=== PATIENT | female | born 1975 | race American Indian/Alaskan Native ===

== ENCOUNTER 2018-10-21 10:07 | Emergency (ER) | payer OTHER ==
[2018-10-21 10:15] VITALS: BP 124/70
[2018-10-21] MEDS ORDERED: NACL 0.9% 1000 ML 1,000 ML IV ONE (10:15)
[2018-10-21] MEDS ORDERED: TYLENOL PO ONE (10:15)
[2018-10-21] MEDS ORDERED: TYLENOL ONE (10:19)
[2018-10-21 10:31] LABS: Basophils % (Auto) 0.6 % (0.0-1.8); Eosinophils # (Auto) 0.1 K/mm3 (0.0-0.4); Eosinophils % (Auto) 0.8 % (0.0-4.3); Hematocrit 40.7 % (30.3-42.9); Hemoglobin 13.7 gm/dl (10.1-14.3); Lymphocytes # (Auto) 2.2 K/mm3 (1.2-5.4); Lymphocytes % (Auto) 28.2 % (13.4-35.0); Mean Corpuscular HGB Conc 34 % (30-34); Mean Corpuscular Volume 93 fl (79-97); Monocytes # (Auto) 0.4 K/mm3 (0.0-0.8); Monocytes % (Auto) 5.3 % (0.0-7.3); Platelet Count 278 K/mm3 (140-440); Red Cell Distribution Width 13.6 % (13.2-15.2)
[2018-10-21 10:54] LABS: Alanine Aminotransferase 14 units/L (7-56); Albumin 3.8 g/dL (3.9-5); BUN/Creatinine Ratio 14; Blood Urea Nitrogen 10 mg/dL (7-17); Calcium 8.6 mg/dL (8.4-10.2); Hemolysis Index 7
[2018-10-21 11:25] LABS: Bilirubin,Urine NEG (Negative); Blood,Urine NEG (Negative); Color,Urine Yellow (Yellow); Mucus,Urine FEW /HPF; Protein,Urine <15 mg/dL mg/dL (Negative); Urobilinogen,Urine < 2.0 mg/dL (<2.0); WBC,Urine < 1.0 /HPF (0.0-6.0)
--- NOTE | 2018-10-21 11:33 | Emergency Department Report ---
ED Abdominal Pain HPI - General Chief Complaint: Nausea/Vomiting/Diarrhea Stated Complaint: NAUSEA/WEAKNESS/STOMACH PAIN Time Seen by Provider: 10/21/18 11:24 Source: patient Mode of arrival: Ambulatory Limitations: No Limitations - History of Present Illness Initial Comments: Mrs. Perera is a healthy 43 yo female who presents with abdominal bloating n ausea vomiting for 3 days. Has had several months of constipation. Denies pain currently. Concerned for endometriosis, GERD and H. Pyloria. Does not have a PCP. -: Gradual, days(s) (3) Location: diffuse Severity: mild Severity scale (0 -10): 2 Quality: other (bloating) Improves With: nothing Worsens With: nothing Associated Symptoms: nausea, vomiting - Related Data Previous Rx's Medication Instructions Recorded Last Taken Type Ciprofloxacin HCl [Ciprofloxacin 500 mg PO Q12H 7 Days #14 tab 10/21/18 Unknown Rx TAB] Famotidine 20 mg PO BID 30 Days #60 tablet 10/21/18 Unknown Rx metroNIDAZOLE [Flagyl] 500 mg PO Q12HR 7 Days #14 tab 10/21/18 Unknown Rx Allergies Allergy/AdvReac Type Severity Reaction Status Date / Time No Known Allergies Allergy Unverified 10/21/18 10:09 ED Review of Systems ROS: Stated complaint: NAUSEA/WEAKNESS/STOMACH PAIN Other details as noted in HPI Comment: All other systems reviewed and negative Respiratory: denies: cough Cardiovascular: denies: chest pain Gastrointestinal: abdominal pain, nausea, vomiting, constipation ED Past Medical Hx - Past Medical History Previous Medical History?: No - Surgical History Past Surgical History?: Yes Additional Surgical History: C/S, 3 cervical cerclages - Social History Smoking Status: Current Every Day Smoker Substance Use Type: None - Medications Home Medications: Home Medications Medication Instructions Recorded Confirmed Last Taken Type Ciprofloxacin HCl [Ciprofloxacin 500 mg PO Q12H 7 Days #14 tab 10/21/18 Unknown Rx TAB] Famotidine 20 mg PO BID 30 Days #60 tablet 10/21/18 Unknown Rx metroNIDAZOLE [Flagyl] 500 mg PO Q12HR 7 Days #14 tab 10/21/18 Unknown Rx ED Physical Exam - General Limitations: No Limitations General appearance: alert, in no apparent distress - Head Head exam: Present: atraumatic, normocephalic - Eye Eye exam: Present: normal appearance - ENT ENT exam: Present: mucous membranes moist - Neck Neck exam: Present: normal inspection, full ROM. Absent: tenderness, meningismus - Respiratory Respiratory exam: Present: normal lung sounds bilaterally. Absent: respiratory distress, wheezes, rales, rhonchi - Cardiovascular Cardiovascular Exam: Present: regular rate, normal rhythm, normal heart sounds. Absent: systolic murmur, diastolic murmur, rubs, gallop - GI/Abdominal GI/Abdominal exam: Present: soft, distended, normal bowel sounds. Absent: tenderness, guarding, rebound - Extremities Exam Extremities exam: Present: normal inspection - Back Exam Back exam: Present: normal inspection - Neurological Exam Neurological exam: Present: alert, oriented X3 - Psychiatric Psychiatric exam: Present: normal affect, normal mood - Skin Skin exam: Present: warm, dry, intact, normal color. Absent: rash ED Course Vital Signs 10/21/18 10:13 Temperature 100.0 F H Pulse Rate 86 Respiratory 18 Rate Blood Pressure 124/70 O2 Sat by Pulse 99 Oximetry ED Medical Decision Making - Lab Data Result diagrams: 10/21/18 10:19 10/21/18 10:19 Laboratory Results - last 24 hr 10/21/18 10/21/18 10/21/18 10:19 10:19 10:19 WBC 7.7 RBC 4.40 Hgb 13.7 Hct 40.7 MCV 93 MCH 31 MCHC 34 RDW 13.6 Plt Count 278 Lymph % (Auto) 28.2 Catron % (Auto) 5.3 Eos % (Auto) 0.8 Baso % (Auto) 0.6 Lymph # 2.2 Catron # 0.4 Eos # 0.1 Baso # 0.0 Seg Neutrophils % 65.1 Seg Neutrophils # 5.0 Sodium 139 Potassium 4.5 Chloride 105.5 Carbon Dioxide 23 Anion Gap 15 BUN 10 Creatinine 0.7 Estimated GFR > 60 BUN/Creatinine Ratio 14 Glucose 100 Calcium 8.6 Total Bilirubin 0.30 AST 14 ALT 14 Alkaline Phosphatase 61 Total Protein 7.0 Albumin 3.8 L Albumin/Globulin Ratio 1.2 HCG, Qual Negative Urine Color Urine Turbidity Urine pH Ur Specific Red[place] Urine Protein Urine Glucose (UA) Urine Ketones Urine Blood Urine Nitrite Urine Bilirubin Urine Urobilinogen Ur Leukocyte Esterase Urine WBC (Auto) Urine RBC (Auto) U Epithel Cells (Auto) Urine Mucus 10/21/18 10:29 WBC RBC Hgb Hct MCV MCH MCHC RDW Plt Count Lymph % (Auto) Catron % (Auto) Eos % (Auto) Baso % (Auto) Lymph # Catron # Eos # Baso # Seg Neutrophils % Seg Neutrophils # Sodium Potassium Chloride Carbon Dioxide Anion Gap BUN Creatinine Estimated GFR BUN/Creatinine Ratio Glucose Calcium Total Bilirubin AST ALT Alkaline Phosphatase Total Protein Albumin Albumin/Globulin Ratio HCG, Qual Urine Color Yellow Urine Turbidity Clear Urine pH 6.0 Ur Specific [place] 1.033 H Urine Protein <15 mg/dl Urine Glucose (UA) Neg Urine Ketones Neg Urine Blood Neg Urine Nitrite Neg Urine Bilirubin Neg Urine Urobilinogen < 2.0 Ur Leukocyte Esterase Neg Urine WBC (Auto) < 1.0 Urine RBC (Auto) 2.0 U Epithel Cells (Auto) 5.0 Urine Mucus Few - Radiology Data Radiology results: report reviewed CT scan remarkable for left-sided colitis - Medical Decision Making Mrs. Aguilar presents with low-grade fever abdominal bloating CT scan remarkable for left-sided colitis. Differential diagnosis includes diverticulitis. Prescribed Ciprofloxacin and Flagyl. Also prescribed famotidine. Recommended Metamucil. Refer to the outpatient physician. Critical care attestation.: If time is entered above; I have spent that time in minutes in the direct care of this critically ill patient, excluding procedure time. ED Disposition Clinical Impression: Colitis Disposition: [id number] TO HOME OR SELFCARE Is pt being admited?: No Does the pt Need Aspirin: No Condition: Stable Instructions: Infectious Colitis (ED) Prescriptions: Ciprofloxacin HCl [Ciprofloxacin TAB] 500 mg PO Q12H 7 Days #14 tab Famotidine 20 mg PO BID 30 Days #60 tablet metroNIDAZOLE [Flagyl] 500 mg PO Q12HR 7 Days #14 tab Referrals: [facility] [Outside] - 3-5 Days
--- NOTE | 2018-10-21 12:42 | Cat Scan Report ---
PROCEDURE: CT ABDOMEN PELVIS WO CON TECHNIQUE: Computerized axial tomography of the abdomen and pelvis was performed without intravenous contrast. This study is performed without intravascular contrast material and its sensitivity for ab dominal and pelvic pathology, including neoplasms, inflammation, abscess, free fluid, thrombosis, art erial dissection and infarction, is reduced compared with a contrast enhanced study. CT DOSE LENGTH PRODUCT: 969.4 mGy-cm. HISTORY: abdominal bloating COMPARISONS: None currently available. FINDINGS: Abdomen: Trace bilateral pleural effusions. No large consolidation. Heart size is within normal limits. Stomach: Moderate hiatal hernia. Otherwise unremarkable. Liver, gallbladder, spleen with calcified granuloma, pancreas, and adrenals are unremarkable. Kidneys: No hydronephrosis. No nephroureteral stones. No aneurysm. [id number] atherosclerotic disease. IVC is unremarkable. There is no periaortic or retroperitoneal adenopathy or mass. Sections of the left colon are collapsed which limits evaluation for wall thickening. There may be so me mild wall thickening of the descending and sigmoid colon. No significant stranding. Mild to modera te stool in the remainder of the colon without wall thickening or stranding. Terminal ileum is unremarkable. Appendix is normal. Small bowel loops are unremarkable. No obstructive pattern. No air-fluid levels. No free air. No free fluid. Mesentery is unremarkable. Pelvis: Trace free fluid. Limited images of the uterus are unremarkable. Bladder: Unremarkable. There is no pelvic mass or adenopathy. Inguinal regions are unremarkable. Bones: No suspicious osseous lesions on this limited examination of the skeleton. Metastatic disease better evaluated with bone scan. IMPRESSION: * Trace bilateral pleural effusion. * Trace free fluid in the pelvis is nonspecific. Possibly physiologic. * Possible mild left colon colitis versus enterocolitis without obstruction, perforation, or abscess . Differential diagnosis includes collapsed colon. This document is electronically signed by Tank Fernandes MD., October 21 2018 12:40:39 PM ET
== END 2018-10-21 13:17 | disposition home or self-care (01) ==
LOC: ED 10:07
DX: K52.9 Noninfective gastroenteritis and colitis, unspecified (principal); F17.200 Nicotine dependence, unspecified, uncomplicated
CPT/HCPCS: 36415; 74176; 80053; 81001; 84703; 85025; 99284